=== PATIENT | male | born 1995 | race Caucasian/White ===

== ENCOUNTER 2017-03-22 20:33 | Emergency (ER) | payer OTHER ==
[2017-03-22 20:43] VITALS: BP 118/95
--- NOTE | 2017-03-22 21:50 | RAD ---
INDICATION: Left elbow pain COMPARISON: None TECHNIQUE: AP, lateral, and oblique views were obtained. FINDINGS: No acute fractures seen. The elbow articulates normally. There is an effusion with displacement of anterior posterior fat pads. IMPRESSION: JOINT EFFUSION CONSISTENT WITH HEMARTHROSIS IN THE SETTING OF ACUTE TRAUMA. NO FRACTURE IS SEEN. SUGGEST FOLLOW-UP IN 7-10 DAYS TO EVALUATE FOR OCCULT FRACTURE.
--- NOTE | 2017-03-22 21:50 | RAD ---
INDICATION: Right knee pain COMPARISON: None TECHNIQUE: AP, lateral, tunnel, and sunrise views were obtained. FINDINGS: The bony structures, joint spaces, and soft tissues are normal for age. IMPRESSION: NEGATIVE EXAMINATION.
--- NOTE | 2017-03-22 22:18 | ED ---
Upper Extremity Pain - HPI Summary HPI Summary: 21M presents with left elbow pain and right knee pain. He fell onto his elbow accidental as he tripped. He has swelling to his elbow. He took some ibuprofen. He has full ROM of his elbow. He denies any previous injury to the area. He has abrasions to his knee. He was able to ambulate in. He is right handed. - History of Current Complaint Chief Complaint: EDExtremityUpper Stated Complaint: LT ELBOW INJURY Time Seen by Provider: 03/22/17 21:23 - Allergies/Home Medications Allergies/Adverse Reactions: Allergies Allergy/AdvReac Type Severity Reaction Status Date / Time No Known Allergies Allergy Verified 03/22/17 20:43 PMH/Surg Hx/FS Hx/Imm Hx Endocrine/Hematology History: Denies: Hx Anticoagulant Therapy Cardiovascular History: Denies: Hx Hypertension Infectious Disease History: No Infectious Disease History: Denies: Traveled Outside the [place] in Last 30 Days - Family History Known Family History: Negative: Diabetes - Social History Alcohol Use: None Substance Use Type: Reports: None Smoking Status (MU): Never Smoked Tobacco Review of Systems Negative: Fever Negative: Chest Pain Negative: Shortness Of Breath Positive: Myalgia - left elbow and right knee All Other Systems Reviewed And Are Negative: Yes Physical Exam Triage Information Reviewed: Yes Vital Signs On Initial Exam: Initial Vitals Temp Pulse Resp BP Pulse Ox 98.8 F 66 18 118/95 97 03/22/17 20:40 03/22/17 20:40 03/22/17 20:40 03/22/17 20:40 03/22/17 20:40 Vital Signs Reviewed: Yes Appearance: Positive: Well-Appearing Skin: Positive: Warm, Dry Head/Face: Positive: Normal Head/Face Inspection Eyes: Positive: Normal, Conjunctiva Clear Respiratory/Lung Sounds: Positive: Clear to Auscultation, Breath Sounds Present Cardiovascular: Positive: Normal, RRR Musculoskeletal: Positive: Strength/ROM Intact - right knee, Limited @ - left elbow with pain, Edema Left - elbow, Other - good pulses, capillary refill<2 secs, abrasion to right knee, 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 - Radiology elbow Xray Interpretation: Positive (See Comments) - HEMARTHROSIS Radiology Interpretation Completed By: Radiologist knee Xray Interpretation: No Acute Changes Radiology Interpretation Completed By: Radiologist Course/Dx - Course Course Of Treatment: 21M presents with left elbow pain and right knee pain. He fell onto his elbow accidental as he tripped. He has swelling to his elbow. He took some ibuprofen. He has full ROM of his elbow. He denies any previous injury to the area. He has abrasions to his right knee. He was able to ambulate in. He is right handed. on exam has edema to left elbow. good pulses , neurovascular intact. tenderness to right knee. xray elbow shows hemarthosis. knee normal xray. will treat as potential radial head fracture with sling. patient understand and agrees with plan. - Diagnoses Differential Diagnosis/HQI/PQRI: Positive: Fracture (Closed), Strain, Sprain Provider Diagnoses: Injury of left elbow, Right knee injury Discharge - Discharge Plan Condition: Good Disposition: HOME Patient Education Materials: Hemarthrosis (ED) [facility]errals: [facility] [Primary Care Provider] - Additional Instructions: Keep elbow in sling Use ibuprofen for pain every 6 hours Ice, elevate Follow up with ortho if no improvement or follow up with IC in a week Return to ED if develop any new or worsening symptoms
== END 2017-03-22 22:27 | disposition home or self-care (01) ==
LOC: ED 20:33
DX: S59.902A Unspecified injury of left elbow, initial encounter (principal); S89.91XA Unspecified injury of right lower leg, initial encounter; W01.0XXA Fall on same level from slipping, tripping and stumbling without subsequent striking against object, initial encounter; Y93.9 Activity, unspecified; Y92.9 Unspecified place or not applicable
CPT/HCPCS: 99282